=== PATIENT | female | born 1970 | race Caucasian/White ===

== ENCOUNTER 2021-02-10 08:03 | Outpatient (CLI) | payer BC, SELFPAY ==
--- NOTE | ~2021-02-10 | US_ITS ---
US abdomen complete EXAMINATION: US Abdomen Complete INDICATION: Generalized abdominal pain PROCEDURE: Realtime High Resolution abdomen ultrasound. COMPARISON: No prior studies for comparison FINDINGS: Gallbladder within normal limits. No gallstones, pericholecystic fluid, gallbladder wall t hickening or biliary dilatation. Common bile duct measures 4 mm. Liver echotexture within normal limits without focal mass. Pancreas within normal limits. Pancreati c tail is obscured by bowel gas. Spleen is unremarkeable. There is possible mild bilateral hydroneph rosis. No solid masses are identified. No definite stones. Visualized aspects of the aorta and IVC are within normal limits. Portal vein is patent. No sonograph ic Cai's sign indicated by the technologist. IMPRESSION: 1: Questionable mild bilateral hydronephrosis. Reviewed, dictated and finalized at location A.
== END 2021-02-10 08:04 ==
PROVIDERS: PCP Nurse Practitioner Family; Visit Provider Nurse Practitioner Family
DX: R10.84 Generalized abdominal pain (principal)
CPT/HCPCS: 76700

== ENCOUNTER 2021-04-16 07:55 | Outpatient (CLI) | payer BC, SELFPAY ==
--- NOTE | ~2021-04-16 | US_ITS ---
EXAMINATION: US renal BI DATE: 04/16/2021 08:22 INDICATION: Hydronephrosis TECHNIQUE: Multiple grayscale and Doppler ultrasound images of the kidneys were obtained. COMPARISON: Ultrasound, 02/10/2021; CT, 03/10/2014 FINDINGS: The right kidney measures 9.2 x 5.2 x 5.9 cm. The left kidney measures 9.8 x 4.7 x 4.8 cm. The kidneys demonstrate normal parenchymal echogenicity. There is mild right hydronephrosis with impr ovement since the comparison ultrasound. The bladder is normal. IMPRESSION: 1. Mild right hydronephrosis with improvement since the comparison ultrasound. Reviewed, dictated and finalized at location A. [employer]
== END 2021-04-16 07:56 ==
PROVIDERS: PCP Family Medicine; Visit Provider Nurse Practitioner Family
DX: N13.30 Unspecified hydronephrosis (principal)
CPT/HCPCS: 76775